=== PATIENT | male | born 1990 | race Caucasian/White ===

== ENCOUNTER 2020-11-06 01:07 | Emergency (ER) | payer BC ==
[2020-11-06 01:17] VITALS: O2SAT 100
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
[2020-11-06] MEDS ORDERED: BACIGUENT PACKET TP ONE (02:02)
[2020-11-06] MEDS ORDERED: BACIGUENT PACKET ONE (02:03)
[2020-11-06] MEDS ORDERED: CLEOCIN 150 MG CAPSULE PO ONE (02:06)
[2020-11-06] MEDS ORDERED: CLEOCIN 150 MG CAPSULE ONE (02:09)
[2020-11-06 02:56] VITALS: BP 153/86; PULSE 72
== END 2020-11-06 02:35 | disposition home or self-care (01) ==
LOC: ED 01:07
DX: S01.81XA Laceration without foreign body of other part of head, initial encounter (principal); V86.95XA Unspecified occupant of 3- or 4- wheeled all-terrain vehicle (ATV) injured in nontraffic accident, initial encounter; Y93.9 Activity, unspecified; Y92.89 Other specified places as the place of occurrence of the external cause
CPT/HCPCS: 12013; 36415; 80307; 99283; A9270-GY; G0480